=== PATIENT | male | born 1960 | race Caucasian/White ===

== ENCOUNTER → 2019-06-28 | Outpatient (CLI) | payer OTHER | LOC: RAD 16:09 | DX: M51.36 Other intervertebral disc degeneration, lumbar region (principal); M40.56 Lordosis, unspecified, lumbar region; M16.12 Unilateral primary osteoarthritis, left hip ==

== ENCOUNTER 2019-08-03 10:56 | Outpatient (RCR) | payer OTHER | END 2019-11-01 | disposition still patient (30) | LOC: PT | DX: M51.36 Other intervertebral disc degeneration, lumbar region (principal); M70.62 Trochanteric bursitis, left hip; M76.32 Iliotibial band syndrome, left leg ==

== ENCOUNTER → 2019-10-19 | Outpatient (CLI) | payer OTHER ==
[2019-10-19 08:22] LABS: EOS # 0.1 (0.04-0.40); EOS % 1.3 % (0.0-4.0); HEMOGLOBIN 15.1 g/dL (13.5-18.0); LYMPH# 1.6 (1.50-4.00); MEAN CELL VOLUME 87 fl (78-100); MEAN CORPUSCULAR HEMOGLOBIN 29 pg (27-31); MEAN CORPUSCULAR HGB CONC 34 g/dL (33-37); MEAN PLATELET VOLUME 9.6 fl (7.4-10.4); MONO # 0.6 (0.20-0.80); PLATELET COUNT 160 K/mm3 (130-400); RED BLOOD COUNT 5.19 M/mm3 (4.20-5.60); WHITE BLOOD COUNT 5.3 K/mm3 (4.8-10.8)
[2019-10-19 08:47] LABS: ALBUMIN 4.4 g/dL (3.4-4.8); POTASSIUM 4.7 mmol/L (3.5-5.1)
[2019-10-19 08:48] LABS: CALCIUM 9.3 mg/dL (8.3-10.5)
[2019-10-19 08:49] LABS: TOTAL PROTEIN 7.1 g/dL (6.2-8.1)
[2019-10-19 08:51] LABS: TOTAL BILIRUBIN 0.6 mg/dL (0.2-1.2)
[2019-10-19 09:58] LABS: ERYTHROCYTE SEDIMENTATION RATE 5 mm/hr (0-20)
== END ==
LOC: LAB 08:12
PROVIDERS: Internal Medicine
DX: Z00.00 Encounter for general adult medical examination without abnormal findings (principal); Z12.5 Encounter for screening for malignant neoplasm of prostate; Z12.11 Encounter for screening for malignant neoplasm of colon

== ENCOUNTER → 2019-11-13 | Outpatient (CLI) | payer OTHER | LOC: RAD 07:38 | DX: M48.061 Spinal stenosis, lumbar region without neurogenic claudication (principal); M48.07 Spinal stenosis, lumbosacral region; M47.816 Spondylosis without myelopathy or radiculopathy, lumbar region; M47.817 Spondylosis without myelopathy or radiculopathy, lumbosacral region ==

== ENCOUNTER → 2021-04-24 | Outpatient (CLI) | payer OTHER | LOC: RAD 08:13 | DX: M16.12 Unilateral primary osteoarthritis, left hip (principal) ==